=== PATIENT | female | born 1975 ===

== ENCOUNTER 2025-02-12 18:47 | Emergency (ER) | payer BC ==
[2025-02-12] MEDS: Acetaminophen 500 MG Tab PO ONE (19:24)
[2025-02-12] MEDS: Ketorolac 60 MG/2 ML SDV IM ONE (19:25)
== END 2025-02-12 20:55 | disposition home or self-care (01) ==
LOC: MW.ED 18:47
DX: J06.9 Acute upper respiratory infection, unspecified (principal)
CPT/HCPCS: 87428; 87651; 96372; 99284; A9270; J1885; 99283